=== PATIENT | female | born 1945 | race Caucasian/White ===

== ENCOUNTER 2019-11-15 10:08 | Emergency (ER) | payer MEDICARE ==
[2019-11-15] MEDS ORDERED: Adacel Vial IM ONE ×2 (10:38→10:41)
--- NOTE | 2019-11-15 10:38 | ERPHSYRPT ---
- History of Present Illness Time Seen by Provider: 11/15/19 10:32 Source: patient Exam Limitations: no limitations Patient Subjective Stated Complaint: Laceration Triage Nursing Assessment: Patient ambulated back to ED and transferred self to bed. Patient A+O x 3. Patient's skin pink, warm and dry. Patient complains of laceration to top of head. Patient states she was bending down to pick something up and hit the top of her head on a refridgerator. Physician History: pt is 73 yr old female who cut her head on refrigerator - no LOC, no blood thinner except for ASA. incised wound top of scalp - no neruo symptoms or findings . wound is clean without FB on gentle probing and closed with 2 joby after prep and drape. ab and sterile compressive dressing applied. no other complaint of injuries. Timing/Duration: today Quality: painful Severity: moderate Location: scalp Possible Causes: other (direct trauma from sharp edge) Associated Symptoms: denies symptoms Allergies/Adverse Reactions: morphine Allergy (Verified 11/15/19 10:16) Penicillins Allergy (Verified 11/15/19 10:16) sulfamethoxazole [From Bactrim] Allergy (Verified 11/15/19 10:16) trimethoprim [From Bactrim] Allergy (Verified 11/15/19 10:16) Hx Tetanus, Diphtheria Vaccination/Date Given: Yes Hx Influenza Vaccination/Date Given: Yes Hx Pneumococcal Vaccination/Date Given: Yes Immunizations Up to Date: Yes Travel Risk - International Travel Have you traveled outside of the country in past 3 weeks: No Have you or anyone close to you been diagnosed with or: No Do your reside in a community with a known COVID-19 case?: Yes If Yes where:: [place] - Coronavirus Screening Has patient experienced Coronavirus symptoms: No - Review of Systems Constitutional: No Fever, No Chills Eyes: No Symptoms Ears, Nose, & Throat: No Symptoms Respiratory: No Cough, No Dyspnea Cardiac: No Chest Pain, No Edema, No Syncope Abdominal/Gastrointestinal: No Abdominal Pain, No Nausea, No Vomiting, No Diarrhea Genitourinary Symptoms: No Dysuria Musculoskeletal: No Back Pain, No Neck Pain Skin: Other (lac scalp), No Rash Neurological: No Dizziness, No Focal Weakness, No Sensory Changes Psychological: No Symptoms Endocrine: No Symptoms All Other Systems: Reviewed and Negative - Past Medical History Pertinent Past Medical History: Yes Neurological History: No Pertinent History ENT History: Cataracts Cardiac History: High Cholesterol, Hypertension Respiratory History: No Pertinent History Endocrine Medical History: No Pertinent History Musculoskeletal History: Arthritis GI Medical History: No Pertinent History History: No Pertinent History Psycho-Social History: No Pertinent History Female Reproductive Disorders: Breast Cancer - Past Surgical History Past Surgical History: Yes Neuro Surgical History: No Pertinent History Cardiac: No Pertinent History Respiratory: No Pertinent History Gastrointestinal: No Pertinent History Genitourinary: No Pertinent History Musculoskeletal: Orthopedic Surgery Female Surgical History: Mastectomy Other Surgical History: right knee replacement 2015 left knee replacement 2013. double masectomy 2009 - Social History Smoking Status: Never smoker Exposure to second hand smoke: No Drug Use: none Patient Lives Alone: No - Female History Hx Now: No - Nursing Vital Signs Nursing Vital Signs: Initial Vital Signs Pulse Rate 70 11/15/19 10:17 Respiratory Rate 18 11/15/19 10:17 Blood Pressure 200/79 11/15/19 10:17 O2 Sat by Pulse Oximetry 97 11/15/19 10:17 Pain Scale Pain Intensity 0 - Physical Exam General Appearance: no apparent distress, alert Eye Exam: PERRL/EOMI, eyes nml inspection Ears, Nose, Throat Exam: normal ENT inspection, pharynx normal, moist mucous membranes Neck Exam: normal inspection, non-tender, supple, full range of motion Respiratory Exam: normal breath sounds, lungs clear, No respiratory distress Cardiovascular Exam: regular rate/rhythm, normal heart sounds Gastrointestinal/Abdomen Exam: soft, mass, No tenderness Pelvic Exam: deferred Rectal Exam: deferred Back Exam: normal inspection, normal range of motion, No CVA tenderness, No vertebral tenderness Extremity Exam: normal inspection, normal range of motion Neurologic Exam: alert, oriented x 3, cooperative, normal mood/affect, sensation nml, No motor deficits Skin Exam: normal color, warm, dry SpO2 Interpretation: normal SpO2: 97 O2 Delivery: Room Air Procedures - Laceration/Wound Repair Head Wound Location: head Wound Length (cm): 2 Wound's Depth, Shape: into subcut Wound Explored: no foreign body noted Irrigated: Yes Hibiclens Prep: Yes Wound Debrided: minimal Wound Repaired With: Joby Number of Sutures: 2 Layer Closure?: No Sterile Dressing Applied?: Yes Splint Applied?: No Sling Applied?: No - Course Nursing assessment & vital signs reviewed: Yes - Progress Progress: improved, re-examined Progress Note: 11/15/19 10:42 pt has no pALPABLE SAMANTHA TENDERNESS OR SWELLING OR STEPOFF. Counseled pt/family regarding: diagnosis, need for follow-up - Departure Departure Disposition: Home Clinical Impression: Laceration of scalp Condition: Good Critical Care Time: No Instructions: Surgical Wound (DC), Laceration Repair With [place] (DC), Wound Care (DC) Additional Instructions: followup to have joby removed in 5-10 days may remove dressing tomorrow, return meantime if any concerns or symptoms. keep hair dry until staple removed. ALso followup your dr to recheck your BP as it was a little elevated and if persists might need med adjustment.
[2019-11-15 10:54] VITALS: BP 164/77; PULSE 65; O2SAT 98
== END 2019-11-15 10:53 | disposition home or self-care (01) ==
LOC: ED 10:08
DX: S01.01XA Laceration without foreign body of scalp, initial encounter (principal); W22.8XXA Striking against or struck by other objects, initial encounter
CPT/HCPCS: 12001; 90471; 90715; 99283